=== PATIENT | male | born 1955 ===

== ENCOUNTER 2025-08-16 10:00 | Day surgery (SDC) | payer OTHER ==
[2025-08-08 11:30] VITALS: BP 126/82
[2025-08-08 11:36] LABS: BASO % 0.6 % (0.1-1.2); EOS # 0.29 (0.04-0.54); EOS % 3.3 % (0.7-7.0); LYMPH # 2.64 (1.18-3.74); LYMPH % 29.7 % (19.3-53.1); MEAN PLATELET VOLUME 10.00 fl (9.4-12.4); MONO # 0.67 (0.24-0.82); MONO % 7.5 % (4.7-12.5); NEUT # 5.21 (1.56-6.13); NEUT % 58.6 % (34.0-71.1); RED CELL DISTRIBUTION WIDTH 12.7 % (11.6-14.4)
[2025-08-08 11:39] LABS: URINE APPEARANCE Clear; URINE BILIRRUBIN Negative (NEGATIVE); URINE BLOOD Small; URINE COLOR Yellow; URINE KETONE Negative (NEGATIVE); URINE LEUKOCYTE Negative; URINE NITRATE Negative; URINE PROTEIN Negative (NEGATIVE); URINE UROBILINOGEN 0.2 E.U./dl
[2025-08-08 11:42] LABS: URINE BACTERIA 140.3 uL (0.0-1933); URINE EPITHELIAL CELLS 5.3 uL (0.0-38.8); URINE RBC 57.6 uL (0.0-20.8); URINE WBC 26.3 uL (0.0-23.2)
[2025-08-08 11:56] LABS: URINE CAST 0.14 uL (0.0-1.40); URINE GLUCOSE >=1000 MG/DL (NEGATIVE)
[2025-08-08 11:59] LABS: INR 1.0
[2025-08-08 12:40] LABS: BUN CREA RATIO 14.0 (7.0-25.0); CREATININE SERUM 1.24 mg/dL (0.70-1.30); GFR 57.97; GLUCOSE FASTING 159.0 mg/dL (65-100); OSMOLALITY SERUM 284.0 MOSM/KG (275-295)
[~2025-08-16 10:00] MED LIST: LOSARTAN POTASS50 MG PO; OZEMPIC1 MG/0.71 SQ; ROSUVASTATIN CA40 MG PO; TAMS0.4C; TOPROL XL50 M1
[2025-08-16] MEDS ORDERED: CEFAZOLIN SODIUM 1,000 MG VIAL ONE (10:40)
== END 2025-08-16 14:00 | disposition home or self-care (01) ==
LOC: CIR.AMB 10:00
PROVIDERS: ATTEND Surgery Surgery of the Hand
DX: M67.843 Other specified disorders of tendon, right hand (principal)